=== PATIENT | female | born 1965 ===

== ENCOUNTER → 2023-03-08 09:46 | Outpatient (CLI) | payer OTHER, SELFPAY ==
[2023-03-08 10:36] LABS: COVID-19 CEPHEID 4-PLEX PCR Negative (Negative); Influenza A - CEPHEID Flu A POSITIVE (NEGATIVE); Influenza B - CEPHEID Flu B NEGATIVE (NEGATIVE); Respiratory Syncytial Virus Negative (Negative)
== END ==
PROVIDERS: Visit Provider Physician Assistant
DX: R05.1 Acute cough (principal)
CPT/HCPCS: 0241U

== ENCOUNTER 2023-10-16 10:27 | Emergency (ER) | payer OTHER, SELFPAY ==
--- NOTE | 2023-10-16 10:31 | ED.GENADULT ---
HPI - General Adult General Chief complaint: Headache Stated complaint: COVID+,migraine Time Seen by Provider: 10/16/23 10:28 Source: RN notes reviewed and old records reviewed Mode of arrival: Ambulatory Limitations: no limitations History of Present Illness HPI narrative: 58-year-old female with history of Sjogren's on methotrexate, rituximab with history of migraines. Patient started having nasal congestion headaches myalgias in the past 2-3 days. Tested positive at home for COVID. Patient was prescribed Paxlovid but has not actually started it. She states she has had migraines in the past she states last time she had COVID she also had any flare of her migraines as well. She states typical pattern. She is photophobia and phonophobia, she has not aware of any fevers that she has had so far. She has had nausea but no vomiting. She did try her rizatriptan last night without any improvement. Patient denies any numbness tingling or weakness any difficulty with movement or gait. Denies any neck or back pain. No chest pain or shortness of breath. States she intermittently has constipation and diarrhea but is normal for her. Denies any urinary symptoms. Patient states she has not allergy to sumatriptan it makes her migraines worse as well as CARLENE inhibitors. Denies any tobacco, alcohol or recreational drugs. Related Data Home Medications Medication Instructions Recorded Confirmed candesartan 4 mg tablet 4 mg PO DAILY 03/08/23 03/10/23 cevimeline 30 mg capsule PO 03/08/23 03/10/23 cyanocobalamin (vitamin B-12) mcg IM 03/08/23 03/10/23 1,000 mcg/mL injection solution folic acid 1 mg tablet 1 mg PO DAILY 03/08/23 03/10/23 hydroxychloroquine 200 mg tablet 200 mg PO DAILY 03/08/23 03/10/23 lifitegrast 5 % eye drops in a drp EYE-BOTH 03/08/23 03/10/23 dropperette (Xiidra) methotrexate sodium (PF) 25 mg/mL mg IM 03/08/23 03/10/23 injection solution rizatriptan 10 mg tablet mg PO 03/08/23 03/10/23 Previous Rx's Medication Instructions Recorded butalbital 50 mg-acetaminophen 300 1 tab PO QID PRN migraine #30 tabs 12/19/23 mg tablet guaifenesin 1,200 mg tablet, 1,200 mg PO Q12H #30 tabs 03/08/23 extended release 12 hr Allergies Allergy/AdvReac Type Severity Reaction Status Date / Time fosinopril Allergy Intermediate Edema Verified 10/16/23 10:41 lisinopril Allergy Intermediate Edema Verified 10/16/23 10:41 sumatriptan AdvReac Verified 10/16/23 10:41 Review of Systems Review of Systems ROS Unobtainable: All systems reviewed & are unremarkable except as noted in HPI and below Patient History Social History Smoking Status: Never smoker Smoking Status: Never smoker Exam Narrative Exam Narrative: GEN: well nourished, female, alert and oriented x 3, patient appears to be in moderate distress. HEENT: Atraumatic, pupils are equal round reactive to light, extraocular movements are intact, positive for photophobia, nares are clear, there is no conjunctival pallor. Throat is clear without any exudates, erythema, tonsillar enlargement or uvular deviation, no meningeal signs. HEART: Regular rate and rhythm without murmur, clicks, rubs. LUNGS:Lungs clear to auscultation, no wheezes, rales, crackles, chest moves symmetrically ABD:bowel sounds normal, soft, non-tender, no guarding, rebound, rigidity, no masses noted, no hepatosplenomegaly MSCL: Non-tender, no muscle atrophy, muscles strength 5/5 upper and lower extremities, full range of motion, normal gait NEURO:CN 2-12 intact, sensation normal. SKIN: No rash, erythema or other skin changes noted. Initial Vital Signs Initial Vital Signs: Vital Signs Pulse Rate 71 10/16/23 10:37 Respiratory Rate 16 10/16/23 10:37 Blood Pressure 141/80 H 10/16/23 10:37 Pulse Oximetry 98 10/16/23 10:37 Oxygen Delivery Method Room Air 10/16/23 10:37 Course Orders Ordered: Discontinued Medications Sodium Chloride (Normal Saline 0.9%) 1,000 mls @ 1,000 mls/hr IV BOLUS ONE Stop: 10/16/23 11:44 Last Infusion: 10/16/23 12:36 Dose: Infused Documented By: Admin: 10/16/23 11:08 Dose: 1,000 mls/hr Documented By: Ketorolac Tromethamine (Ketorolac 30 Mg/Ml Vial) 15 mg IV NOW ONE Stop: 10/16/23 10:46 Last Admin: 10/16/23 11:00 Dose: 15 mg Documented By: Metoclopramide HCl (Metoclopramide 10 Mg/2 Ml Inj) 10 mg IV NOW ONE Stop: 10/16/23 10:46 Last Admin: 10/16/23 11:00 Dose: 10 mg Documented By: Vital Signs Vital signs: Vital Signs - 8 hr 10/16/23 10:37 10/16/23 10:42 10/16/23 12:45 Temperature 98.3 F Pulse Rate 71 67 Respiratory Rate 16 12 Blood Pressure 141/80 H 133/61 Pulse Oximetry 98 99 Oxygen Delivery Method Room Air Room Air Medical Decision Making MDM Narrative Medical decision making narrative: 58-year-old female with recent diagnosis of COVID who states she has had a flare with typical migraine pattern. She states she did have COVID once before and also had a similar episode. Patient tried her home rizatriptan without any improvement. She has been prescribed Paxlovid but has not started it. She does have a history of Sjogren's in his on methotrexate, hydroxychloroquine as well as rituximab normally. She has been afebrile. Vitals are overall appropriate. Patient appears uncomfortable but nontoxic. Was given fluids, Toradol and Reglan on recheck patient is feeling much improved and feels comfortable to discharge home. Discharge Plan Departure Patient Disposition: Home Clinical Impression: Migraine Instructions: DI for Migraine Activity Restrictions/Additional Instructions: I hope you continue to feel improved. Please return if you are having worsening symptoms, rapidly worsening headaches, sudden vision changes, numbness tingling or weakness, persistent vomiting, any difficulty with ambulation or movement, passing out, chest pain or shortness of breath or other new or concerning changes. Prescriptions: No Action candesartan 4 mg tablet 4 mg PO DAILY rizatriptan 10 mg tablet PO cevimeline 30 mg capsule PO cyanocobalamin (vitamin B-12) 1,000 mcg/mL solution IM methotrexate sodium (PF) 25 mg/mL solution IM Patient Comments: [NO ORIGINAL SIG] hydroxychloroquine 200 mg tablet 200 mg PO DAILY folic acid 1 mg tablet 1 mg PO DAILY Xiidra 5 % dropperette EYE-BOTH Patient Comments: [NO ORIGINAL SIG] butalbital-acetaminophen 50-300 mg tablet 1 tab PO QID PRN (Reason: migraine) Qty: 30 0RF guaifenesin 1,200 mg tablet extended release 12hr 1,200 mg PO Q12H Qty: 30 0RF Referrals: Miscellaneous,Doctor, MD [Primary Care Provider] - Stand Alone Forms: Patient Portal/API
[2023-10-16 10:37] VITALS: BP 141/80; PULSE 71; RESP 16; O2SAT 98; BMI 24.5
[2023-10-16 10:42] VITALS: TEMP 36.8
[2023-10-16] MEDS: METOCLOPRAMIDE 10 MG/2 ML INJ IV (11:00)
[2023-10-16] MEDS: KETOROLAC 30 MG/ML VIAL 15 MG IV (11:00)
[2023-10-16] MEDS: SODIUM CHLORIDE 0.9% 1,000 ML 1000 ML IV (11:08)
[2023-10-16 12:45] VITALS: BP 133/61; PULSE 67; RESP 12; O2SAT 99
== END 2023-10-16 12:46 | disposition home or self-care (01) ==
PROVIDERS: Emergency Provider Emergency Medicine
DX: G43.909 Migraine, unspecified, not intractable, without status migrainosus (principal); U07.1 COVID-19
CPT/HCPCS: 96361; 96374; 96375; 99283; 99284; J1885; J2765

== ENCOUNTER 2025-02-05 07:17 | Emergency (ER) | payer OTHER, SELFPAY ==
[2025-02-05] VITALS (20 sets, daily range): BP systolic 119–137; BP diastolic 58–71; PULSE 67–89; RESP 12–24; TEMP 37.3; O2SAT 95–99; BMI 23.8
[2025-02-05] MEDS: METOCLOPRAMIDE 10 MG/2 ML INJ IV (08:22)
[2025-02-05] MEDS: ACETAMINOPHEN IV 1,000 MG/100 ML VIAL 400 MG IV (08:22)
[2025-02-05] MEDS: LACTATED RINGERS 2,000 ML 1000 ML IV (08:50)
[2025-02-05 09:02] LABS: Coronavirus NL 63 Not Detected (Not Detect); SARS- CoV-2 Not Detected (Not Detecte)
--- NOTE | 2025-02-05 09:19 | EKG_ITS ---
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
--- NOTE | 2025-02-05 09:19 | DI.RAD.S_ITS ---
PROCEDURE: XR CHEST 1V INDICATIONS: URI TECHNIQUE: One view of the chest was acquired. COMPARISON: None. FINDINGS: Surgical changes and devices: None. Lungs and pleura: Appearance of mild increased opacity within the bases. Mediastinum: Mediastinal contours appear normal. Heart size is normal. Bones and chest wall: No suspicious bony lesions. Overlying soft tissues appear unremarkable. IMPRESSION: Appearance of increased bibasilar opacities suggestive of pneumonia. Dictated by: Meenu Armendariz M.D. on 02/05/2025 at 9:44 Approved by: Meenu Armendariz M.D. on 02/05/2025 at 9:45
[2025-02-05 09:26] LABS: Hematocrit 37.8 % (36-46); Hemoglobin 13.0 g/dL (12.0-16.0); Mean Corpuscular HGB Conc 34.3 % (30-36); Mean Corpuscular Hemoglobin 32.2 PG (26-34); Mean Corpuscular Volume 93.9 fL (80-100); Platelet Count 190 X10^3/uL (150-400)
--- NOTE | 2025-02-05 09:26 | ED.HA ---
HPI - Headache General Chief Complaint: Headache Stated Complaint: Flu , headaches, mouth pain Time Seen by Provider: 02/05/25 07:24 Mode of arrival: Ambulatory History of Present Illness HPI Narrative: 59-year-old F with past medical history of Sjogren's syndrome, follows with Rheumatology and is taking immuno suppressants although has not taken them in approximately 4-5 days. Patient states she got a flu shot on Tuesday. Patient states that she has a low nausea and vomiting tolerance and just vomited once after the flu shot. Also states that she has been having some retrosternal chest pain that is preventing her from eating full bites, able to tolerate po fluid. Never had this before. No significant surgical history noted. Denies abdominal pain, dizziness, or urinary symptoms. Pt with severe headache pending this which she says is typical for when she gets a URI. Related Data Home Medications ?Medication ?Instructions ?Recorded ?Confirmed candesartan 4 mg tablet 4 mg PO DAILY 03/08/23 02/05/25 cevimeline 30 mg capsule 30 mg PO DAILY 03/08/23 02/05/25 cyanocobalamin (vitamin B-12) 1,000 mcg IM WEEKLY 03/08/23 02/05/25 1,000 mcg/mL injection solution folic acid 1 mg tablet 1 mg PO DAILY 03/08/23 02/05/25 hydroxychloroquine 200 mg tablet 200 mg PO DAILY 03/08/23 01/26/25 lifitegrast 5 % eye drops in a drp EYE-BOTH 03/08/23 01/26/25 dropperette (Xiidra) methotrexate sodium (PF) 25 mg/mL 15 mg IM WEEKLY 03/08/23 02/05/25 injection solution rizatriptan 10 mg tablet 10 mg PO PRN 03/08/23 02/05/25 estradiol 0.01% (0.1 mg/gram) vaginal 02/05/25 vaginal cream estradiol 10 mcg vaginal tablet vaginal 02/05/25 rituximab 10 mg/mL IV 02/05/25 concentrate,intravenous Previous Rx's ?Medication ?Instructions ?Recorded butalbital 50 mg-acetaminophen 300 1 tab PO QID PRN migraine #30 tabs 03/08/23 mg tablet guaifenesin 1,200 mg tablet, 1,200 mg PO Q12H #30 tabs 03/08/23 extended release 12 hr Allergies Allergy/AdvReac Type Severity Reaction Status Date / Time fosinopril Allergy Intermediate Edema Verified 01/26/25 15:16 lisinopril Allergy Intermediate Edema Verified 01/26/25 15:16 lidocaine (From Zylotrol Allergy Verified 01/26/25 15:17 (lidocaine HCl)) menthol (From Zylotrol Allergy Verified 01/26/25 15:17 (lidocaine HCl)) sumatriptan AdvReac Verified 01/26/25 15:16 Review of Systems Review of Systems ROS Unobtainable: All systems reviewed & are unremarkable except as noted in HPI and below Patient History Social History Smoking Status: Never smoker Smoking Status: Never smoker Exam Initial Vital Signs Initial Vital Signs: Vital Signs Temperature 99.1 F 02/05/25 07:47 Pulse Rate 89 02/05/25 07:47 Respiratory Rate 18 02/05/25 07:47 Blood Pressure 130/62 02/05/25 07:47 Pulse Oximetry 96 02/05/25 07:47 Oxygen Delivery Method Room Air 02/05/25 07:47 Course Orders Ordered: ED Orders 02/05/25 07:36 Respiratory Panel (Film Array) Stat 02/05/25 08:17 Complete Blood Count AUTO DIFF Stat Comprehensive Metabolic Panel Stat Lipase Stat Magnesium Stat PTT Partial Thromboplastin Wallace Stat Pathologist Review (for CBC) Stat Prothrombin Time INR Stat 02/05/25 09:19 XR chest 1V Stat EKG-12 Lead Stat Discontinued Medications Acetaminophen (Ofirmev) 1,000 mg in 100 mls @ 400 mls/hr IV NOW ONE Stop: 02/05/25 08:00 Last Infusion: 02/05/25 08:50 Dose: Infused Documented By: Admin: 02/05/25 08:22 Dose: 400 mls/hr Documented By: EB Lactated Ringer's (Lactated Ringers) 2,000 mls @ 1,000 mls/hr IV BOLUS ONE Stop: 02/05/25 09:45 Last Infusion: 02/05/25 11:07 Dose: Infused Documented By: Admin: 02/05/25 08:50 Dose: 1,000 mls/hr Documented By: ES Cefepime HCl 2 gm/ Sodium (Chloride) 100 mls @ 200 mls/hr IV NOW ONE Stop: 02/05/25 10:46 Last Infusion: 02/05/25 11:42 Dose: Infused Documented By: Admin: 02/05/25 11:02 Dose: 200 mls/hr Documented By: ANITHA Azithromycin 500 mg/ Dextrose 250 mls @ 250 mls/hr IV NOW ONE Stop: 02/05/25 10:52 Last Infusion: 02/05/25 12:54 Dose: Infused Documented By: Admin: 02/05/25 11:42 Dose: 250 mls/hr Documented By: PIPE Metoclopramide HCl (Metoclopramide 10 Mg/2 Ml Inj) 10 mg IV NOW ONE Stop: 02/05/25 07:47 Last Admin: 02/05/25 08:22 Dose: 10 mg Documented By: ANITHA Vital Signs Vital signs: Vital Signs - 8 hr 02/05/25 08:30 02/05/25 09:00 02/05/25 09:26 Pulse Rate 78 Respiratory Rate Blood Pressure 136/71 119/58 L Pulse Oximetry 02/05/25 09:30 02/05/25 09:31 02/05/25 09:31 Pulse Rate 79 81 Respiratory Rate 19 20 Blood Pressure 133/62 Pulse Oximetry 97 02/05/25 10:00 02/05/25 10:00 02/05/25 10:45 Pulse Rate 74 77 Respiratory Rate 14 18 Blood Pressure 126/60 Pulse Oximetry 96 02/05/25 11:00 02/05/25 11:30 02/05/25 12:00 Pulse Rate 80 74 84 Respiratory Rate 12 Blood Pressure Pulse Oximetry 97 97 98 02/05/25 12:30 02/05/25 12:30 02/05/25 13:00 Pulse Rate 67 76 Respiratory Rate 13 Blood Pressure 137/64 Pulse Oximetry 99 95 02/05/25 13:03 02/05/25 13:03 02/05/25 13:30 Pulse Rate 71 75 Respiratory Rate 20 18 Blood Pressure 133/61 Pulse Oximetry 99 98 02/05/25 13:30 02/05/25 14:00 02/05/25 14:01 Pulse Rate 73 Respiratory Rate 24 Blood Pressure 135/65 136/62 Pulse Oximetry 98 02/05/25 14:01 02/05/25 14:30 02/05/25 14:31 Pulse Rate 73 80 Respiratory Rate 24 Blood Pressure 128/58 L Pulse Oximetry 99 02/05/25 14:31 02/05/25 15:00 02/05/25 15:00 Pulse Rate 72 72 Respiratory Rate 21 23 Blood Pressure 137/62 Pulse Oximetry 98 MDM - Headache Lab Data 02/05/25 08:17 02/05/25 08:17 Labs: Lab Results 02/05/25 02/05/25 Range/Units 07:36 08:17 WBC 0.9 L* (4.5-11.0) X10^3/uL RBC 4.03 (4.0-5.2) X10^6/uL Hgb 13.0 (12.0-16.0) g/dL Hct 37.8 (36-46) % MCV 93.9 (80-100) fL MCH 32.2 (26-34) PG MCHC 34.3 (30-36) % RDW 12.7 (11.6-14.8) % Plt Count 190 (150-400) X10^3/uL Neut % (Auto) Not Reportable Lymph % (Auto) Not Reportable Isabela % (Auto) Not Reportable Eos % (Auto) Not Reportable Baso % (Auto) Not Reportable Lymph # (Auto) Not Reportable Isabela # (Auto) Not Reportable Baso # (Auto) Not Reportable Total Counted 100 Lymphocytes % (Manual) 44.0 (25-45) % Atypical Lymphs % 4.0 H ( - 0) % Monocytes % (Manual) 48.0 H (2-11) % Eosinophils % (Manual) 4.0 (2-4) % Neutrophils # (Manual) 0 L (7539-8974) /uL RBC Morphology Normal morphology PT 11.7 (9.4-12.5) SECONDS INR 1.0 (0.9-1.3) APTT 30 (25.1-36.5) SECONDS Sodium 136 L (137-145) mmol/L Potassium 4.1 (3.4-5.1) mmol/L Chloride 105 (98-107) mmol/L Carbon Dioxide 24 (22-32) mmol/L BUN 15 (7-17) mg/dL Creatinine 0.85 (0.52-1.04) mg/dL Estimated GFR > 60 (>60) mL/min BUN/Creatinine Ratio 17.6 (6-22) Glucose 100 H (70-99) mg/dL Calcium 8.6 (8.4-10.2) mg/dL Magnesium 1.9 (1.6-2.3) mg/dL Total Bilirubin 0.8 (0.2-1.3) mg/dL AST 28 (14-36) IU/L ALT 19 (<35) IU/L Alkaline Phosphatase 57 (38-126) U/L Total Protein 7.0 (6.3-8.2) g/dL Albumin 4.1 (3.5-5.0) g/dL Globulin 2.9 (1.7-4.1) g/dL Albumin/Globulin Ratio 1.4 (1.0-2.8) Lipase 69 (23-300) U/L Chlamy pneumoniae PCR Not detected (Not Detect) Adenovirus (PCR) Not detected (Not Detect) B. pertussis DNA (PCR) Not detected (Not Detect) B.parapertussis DNA PCR Not detected (Not Detecte) Coronavirus OC43 (PCR) Not detected (Not Detect) Coronavirus HKU1 (PCR) Not detected (Not Detect) Coronavirus 229E (PCR) Not detected (Not Detect) SARS-CoV-2 (PCR) Not detected (Not Detecte) Coronavirus NL63 (PCR) Not detected (Not Detect) Human Metapneumovir PCR Not detected (Not Detect) Influenza Type A (PCR) Not detected (Not Detect) Influenza Type B (PCR) Not detected (Not Detect) M. pneumoniae (PCR) Not detected (Not Detect) Parainfluenza 1 (PCR) Not detected (Not Detect) Parainfluenza 2 (PCR) Not detected (Not Detect) Parainfluenza 3 (PCR) Not detected (Not Detect) Parainfluenza 4 (PCR) Not detected (Not Detect) RSV (PCR) Not detected (Not Detect) Entero/Rhino (PCR) Not detected (Not Detect) Patient presents with headache in the context of subjective shortness of breath, tactile fever at home. CXR to evaluate for evidence of PNA. EKG to evaluate for any e/o arrhythmia/ACS. Lab work to evaluate for any e/o severe anemia, electrolyte abnormality (including hypokalemia, hyperkalemia, hyponatremia, hypernatremia, hyperglycemia, hypoglycemia, etc.), thrombocytopenia. PT/PTT/INR to evaluate for e/o coagulopathy. LFTs to evaluate for evidence of acute hepatitis. Lipase to evaluate for evidence of acute pancreatitis. Lactic acid to evaluate for evidence of organ hypoperfusion. IV abx/IVF hydration/ for empiric treatment for suspected infection. Patient was not febrile in the ED and did not meet any sepsis criteria. Stable and not requiring any external oxygen. However given that absolute neutrophil count was 0.0. Patient at high risk for neutropenic pneumonia. Patient treated with cefepime, azithromycin to cover for atypicals. Transferred to [facility] and accepted by Dr. Lobato given need for oncologic workup ECG Data Attestation: I personally reviewed and interpreted this ECG as follows: Interpretation: Normal sinus rhythm, No ST-T changes, The [place] is normal. Ectopy None, P wave and RI interval WNL, QT interval WNL. Interpretation by Emergency Physician Within normal limits. No evidence of acute ischemia except as stated above. I have personally reviewed this EKG and see no signs of ischemia except as noted above. MDM Narrative Medical decision making narrative: Patient presents with acute URI symptoms in the context of Sjogren's disease and history of taking immuno-suppressing drugs. Appears fatigued, with no respiratory distress, tolerating p.o. fluid, well-hydrated. Bloodwork indicated as I considered but do not suspect sepsis, meningitis, severe anemia, electrolyte abnormality (including hypokalemia, hyperkalemia, hypernatremia, hyponatremia, hyperglycemia, hypoglycemia, etc). No UA indicated as I considered but do not suspect UTI. CXR indicated as I considered but do not suspect pneumonia as pt is not hypoxic, has clear lungs and has normal O2 sat and RR. No LP indicated as I considered but do not suspect meningitis as pt is well appearing and has no meningeal signs. Anti pyretics, Cooling measures. Will place a call to patient's older worker specialist for more background information. Updated approximately 9:20 a.m. patient's white count was found to be critically low, pending diff. patient in no acute distress. Re-eval. Critical Care Time Critical Care Time Critical Care Time: Yes Total Critical Care Time: 35 Attestation: Critical Care Time [35] minutes: Critical care time is separate from other billable procedures. This critical care time includes consultation with family and other consulting doctors, review of records, and interpretation of data from labs, EKGs, imaging, etc. Discharge Plan Departure Patient Disposition: [facility] Clinical Impression: Severe neutropenia, Pneumonia Prescriptions: No Action candesartan 4 mg tablet 4 mg PO DAILY rizatriptan 10 mg tablet 10 mg PO PRN cevimeline 30 mg capsule 30 mg PO DAILY cyanocobalamin (vitamin B-12) 1,000 mcg/mL solution 1,000 mcg IM WEEKLY methotrexate sodium (PF) 25 mg/mL solution 15 mg IM WEEKLY Patient Comments: [NO ORIGINAL SIG] hydroxychloroquine 200 mg tablet 200 mg PO DAILY folic acid 1 mg tablet 1 mg PO DAILY Xiidra 5 % dropperette EYE-BOTH Patient Comments: [NO ORIGINAL SIG] butalbital-acetaminophen 50-300 mg tablet 1 tab PO QID PRN (Reason: migraine) Qty: 30 0RF guaifenesin 1,200 mg tablet extended release 12hr 1,200 mg PO Q12H Qty: 30 0RF estradiol 0.01 % (0.1 mg/gram) cream vaginal estradiol 10 mcg tablet VAGINAL rituximab 10 mg/mL concentrate IV Patient Comments: Q 4-5 months
[2025-02-05 09:27] LABS: INR 1.0 (0.9-1.3); Prothrombin Time 11.7 SECONDS (9.4-12.5)
[2025-02-05 09:28] LABS: Add Manual Diff / Slide Review YES
[2025-02-05 09:30] LABS: PTT Partial Thromboplastin Tim 30 SECONDS (25.1-36.5)
[2025-02-05 09:39] LABS: Alanine Aminotransferase 19 IU/L (<35); Albumin 4.1 g/dL (3.5-5.0); Albumin Globulin Ratio 1.4 (1.0-2.8); Alkaline Phosphatase 57 U/L (38-126); Blood Urea Nitrogen 15 mg/dL (7-17); Calcium 8.6 mg/dL (8.4-10.2); Carbon Dioxide 24 mmol/L (22-32); Chloride 105 mmol/L (98-107); Estimated Glomerular Filt Rate > 60 mL/min (>60); Globulin 2.9 g/dL (1.7-4.1); Glucose 100 mg/dL (70-99); Lipase 69 U/L (23-300); Magnesium 1.9 mg/dL (1.6-2.3); Potassium 4.1 mmol/L (3.4-5.1); Sodium 136 mmol/L (137-145); Total Protein 7.0 g/dL (6.3-8.2)
[2025-02-05 09:40] LABS: HEMOLYSIS 54 (0-50)
[2025-02-05 09:43] LABS: Atypical Lymphocytes Percent 4.0 %; Eosinophils Percent Manual 4.0 % (2-4); Lymphocytes Percent Manual 44.0 % (25-45); Monocytes Percent Manual 48.0 % (2-11); Neutrophils Absolute Manual 0 /uL (3000-5900); RBC Morphology Normal Morphology; Total Cells Counted 100
[2025-02-05] MEDS: CEFEPIME 2 GM in SODIUM CHLORIDE 0.9% 100 ML IV (11:02)
[2025-02-05] MEDS: AZITHROMYCIN 500 MG in DEXTROSE 5% IN WATER 250 ML 250 MG IV (11:42)
== END 2025-02-05 15:15 | disposition short-term general hospital (02) ==
PROVIDERS: Emergency Provider Emergency Medicine
DX: D70.9 Neutropenia, unspecified (principal); J18.9 Pneumonia, unspecified organism; M35.00 Sjogren syndrome, unspecified; R51.9 Headache, unspecified; R07.9 Chest pain, unspecified; Z79.60 Long term (current) use of unspecified immunomodulators and immunosuppressants
CPT/HCPCS: 71045; 80053; 83690; 83735; 85007; 85025; 85610; 85730; 87633; 93005; 93010; 96365; 96367; 96375; 99284; 99291; J0131; J0692; J2765; J7050; J7060